=== PATIENT | female | born 1935 | race Caucasian/White ===

== ENCOUNTER 2021-03-13 12:33 | Emergency (ER) | payer MEDICARE ==
[~2021-03-13] VITALS: Ht 160 cm; Wt 40.0 kg
[~2021-03-13 12:33] MED LIST: ALEN70TA79 PO; DONE10TA36 PO; LISI10TA26 PO
[2021-03-13 13:26] VITALS: BP 140/59
== END 2021-03-13 14:43 | disposition left against medical advice (07) ==
LOC: ER 13:44
DX: R07.81 Pleurodynia (principal); S09.90XA Unspecified injury of head, initial encounter; W06.XXXA Fall from bed, initial encounter; Y93.84 Activity, sleeping; Y92.013 Bedroom of single-family (private) house as the place of occurrence of the external cause; I10 Essential (primary) hypertension; F03.90 Unspecified dementia, unspecified severity, without behavioral disturbance, psychotic disturbance, mood disturbance, and anxiety
CPT/HCPCS: 99281